=== PATIENT | female | born 1960 | race Two or more races ===

== ENCOUNTER 2016-05-22 17:51 | Emergency (ER) | payer MEDICAID ==
[~2016-05-22] VITALS: Ht 157.5 cm; Wt 106.6 kg
[~2016-05-22 17:51] MED LIST: ASPI-231 PO; BACL20TA PO; METF-312 PO; NITR-48 PO
[2016-05-22 19:23] LABS: Basophils # (auto) 0 uL; Basophils % (auto) 0.4 % (0.0-2.0); DEFINITIVE VIEW TRANSMISSION; Eosinophils # (auto) 0 uL; Eosinophils % (auto) 0.5 % (0.0-7.0); Hematocrit 36.7 % (36.0-46.0); Hemoglobin 11.8 g/dL (12.2-16.2); Lymphocytes # (auto) 1.4 uL; Lymphocytes % (auto) 17.1 % (10.0-50.0); Mean Corpuscular Hemoglobin 26.9 pg (28.0-32.0); Mean Corpuscular Volume 84.2 fL (80.0-100.0); Mean Platelet Volume 9.6 fL (7.4-10.4); Monocytes # (auto) 0.5 uL; Monocytes % (auto) 6.4 % (0.0-12.0); Neutrophils # (auto) 6.3 uL; Neutrophils % (auto) 75.6 % (37.0-80.0); Platelet Count (auto) 396 10^3/uL (140-450); Red Cell Distribution Width 14.9 % (11.6-16.0); SUSPECT VIEW TRANSMISSION; White Blood Cell 8.4 10^3/uL (4.4-10.8)
[2016-05-22 19:35] LABS: INR 1.09 (0.9-1.15); Partial Thromboplastin Time 28.8 sec (22.64-33.71); Potassium 4.1 mmol/L (3.5-5.1); Prothrombin Time 11.2 sec (9.37-12.3)
[2016-05-22 19:39] LABS: Albumin 3.7 g/dL (3.4-5.0); BUN/Creatinine Ratio 16.8
[2016-05-22 19:42] LABS: B-Type Natriuretic Peptide 4.47 pg/mL (0-100); Bilirubin, Total 0.4 mg/dL (0.2-1.0); Total Protein 8.8 g/dL (6.4-8.2)
[2016-05-22 19:50] LABS: Temperature: 21.8 C (20.0-25.0)
[2016-05-22 20:13] VITALS: BP 119/60
== END 2016-05-22 20:55 | disposition home or self-care (01) ==
LOC: ER 17:51
DX: J01.90 Acute sinusitis, unspecified (principal); J02.9 Acute pharyngitis, unspecified; R11.2 Nausea with vomiting, unspecified; R07.9 Chest pain, unspecified; R06.02 Shortness of breath; J45.909 Unspecified asthma, uncomplicated; I10 Essential (primary) hypertension; E11.9 Type 2 diabetes mellitus without complications; E78.5 Hyperlipidemia, unspecified; Z87.440 Personal history of urinary (tract) infections
CPT/HCPCS: 36415; 70486; 71010; 80053; 83880; 84484; 85025; 85049; 85379; 85610; 85730; 93005